=== PATIENT | male | born 1995 | race Caucasian/White ===

== ENCOUNTER 2018-02-23 14:18 | Emergency (ER) | payer SELFPAY ==
[2018-02-23 14:37] VITALS: BP 150/96
--- NOTE | 2018-02-23 18:57 | XRay Report ---
FINAL REPORT EXAM: XR RT HAND CLINICAL INDICATIONS: PAIN AND WOUND FINDINGS: PA, lateral and oblique views of the right hand were acquired and demonstrate no fracture or malalignment of the right hand. On the oblique view there appears to be a laceration ulnar to the distal aspect of the fifth metacarpal. No foreign body is seen. IMPRESSION: NO FRACTURE IS SEEN IN THE RIGHT HAND
== END 2018-02-23 20:40 | disposition left against medical advice (07) ==
LOC: ED 14:18
DX: S69.91XA Unspecified injury of right wrist, hand and finger(s), initial encounter (principal); Z53.21 Procedure and treatment not carried out due to patient leaving prior to being seen by health care provider; X58.XXXA Exposure to other specified factors, initial encounter; Y93.89 Activity, other specified; Y92.89 Other specified places as the place of occurrence of the external cause; Y99.8 Other external cause status